=== PATIENT | male | born 1965 | race Caucasian/White ===

== ENCOUNTER 2018-03-18 04:10 | Emergency (ER) | payer MEDICAID, SELFPAY ==
[2018-03-18 04:12] VITALS: BP 257/106; PULSE 80; RESP 20; TEMP 35.8; O2SAT 95; BMI 55.0
--- NOTE | 2018-03-18 04:26 | ED.RN ---
NO OLD EKGS IN MUSE
[2018-03-18] MEDS: 0.9% Normal Saline 1,000 ML 150 ML IV (04:29)
[2018-03-18] MEDS: Aspirin 81 MG TAB.CHEW 324 MG PO (04:29)
[2018-03-18 04:30] VITALS: PULSE 79; RESP 20; O2SAT 95
[2018-03-18 04:31] LABS: Absolute Lymphocyte Count 2.26 X10^3/ul (0.83-4.51); Absolute Neutrophil Count 9.9 X10^3/uL (2.0-7.7); Basophil# 0.03 X10^3/uL; Basophil% 0.2 % (0-1); Eosinophil# 0.03 X10^3/uL; Eosinophils% 0.2 % (0-5); Hematocrit 42.6 % (40-54); Hemoglobin 14.4 g/dl (13.0-16.5); Lymphocyte # 2.26 X10^3/ul (4.0); Lymphocyte % 16.8 % (19-41); Mean Corp Hgb Conc 33.8 g/gl (32-36); Mean Corpuscular Hgb 31.4 pg (27.0-32.0); Mean Corpuscular Volume 92.8 fL (80-94); Mean Platelet Vol. 9.6 fl (6.2-12.0); Monocyte# 1.19 X10^3/uL; Monocyte% 8.8 % (0-10); Neutrophil # 9.92 X10^3/uL (2.7-7.7); Neutrophil % 73.7 % (47-70); Platelet Count 375 K/mm3 (150-450); RBC Distribution Width CV 12.5 % (11.6-14.6); RBC Distribution Width SD 42.3 fl (35.1-43.9); Red Blood Count 4.59 M/mm3 (4.6-6.2); White Blood Count 13.5 K/mm3 (4.4-11.0)
[2018-03-18 04:32] LABS: POSITIVE COUNT NO; POSITIVE DIFFERENTIAL NO; POSITIVE MORPHOLOGY NO
[2018-03-18 04:35] VITALS: BP 198/92; PULSE 76
[2018-03-18 04:41] VITALS: BP 181/89; PULSE 78
[2018-03-18 04:46] LABS: Anion Gap 10 (5-15); BUN 11 mg/dL (7-18); Calcium,Total 8.4 mg/dL (8.5-10.1); Chloride 109 mmol/L (98-107); Creatinine, Serum 0.85 mg/dL (0.70-1.30); EST Glomerular Filtration Rate 101 mL/min (>60); Est Glom Filt Rate - Afr Amer 122 mL/min (>60); Estimated Creatinine Clearance 92.78 ml/min; Glucose 111 mg/dL (74-106); Potassium 4.5 mmol/L (3.5-5.1); Sodium Level 142 mmol/L (136-145)
[2018-03-18 04:47] VITALS: BP 178/90; PULSE 75
--- NOTE | 2018-03-18 05:08 | ED.VISSUMM ---
- ER Visit Summary Date of Service: 03/18/18 Chief Complaint: [Dental pain] History of Present Illness: The patient is a 52 M [presents the emergency department with complaint of dental pain that started yesterday. Patient states that he cracked his right lower molar several months ago but really did not have any pain with it. Patient has been having severe pain that will not resolve with ibuprofen over the last 24 hours. Patient states the pain radiates into the right clavicle and neck area. Patient denies any chest pain or shortness of breath. Patient has not had any nausea or vomiting. He denies any exertional dyspnea. 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 Patient denies recent illness. Patient denies recent travel. Patient states that normally his blood pressures in the 150s over 80s. Patient is not a diabetic. Patient denies elevated cholesterol. Patient does not smoke.] Physical Examination: [HEENT-PERRLA, EOMI. Cranial nerves II through XII grossly intact. TMs clear. Mucous membranes moist. No adenopathy. Dentition-patient has a broken and carried right lower first molar that is tender to palpation. There is no gingival erythema or abscess formation noted. Palpating the right lower molar does mostly reproduce his pain. Cardiovascular-regular rate and rhythm without murmur or ectopy Lungs-clear to auscultation, chest wall stable without crepitus or subcu emphysema Abdomen-normoactive bowel sounds, soft, nontender, no rebound or rigidity, no peritoneal signs. Extremities-intact ?4, normal range of motion, normal pulses, atraumatic] Test Results: [EKG obtained on arrival showed a sinus rhythm with a ventricular rate of 74 bpm with no acute ST segment changes. CBC with differential showed a white blood cell count of 13.5, hemoglobin 14, hematocrit 43, platelets 375. Chemistries unremarkable. Troponin was less than 0.015. Chest x-ray showed nothing acute.] Emergency Department Course and Treatment: [On the emergency department patient did receive aspirin 324 mg p.o. Patient received 1 sublingual nitro every 5 minutes ?3 and had no real improvement in his pain. Patient's blood pressure did improve into the 150 systolic over 80s diastolic.] Treatment Plan: [I had a long discussion with the patient about my concern for his elevated blood pressure as well as this discomfort into the jaw and the neck and concern for cardiac disease. I recommended admission for further workup and evaluation including stress testing. Patient understands my concern but he does not feel his dental pain is cardiac equivalent. Patient is refusing admission and states that he would like to follow-up as an outpatient with his primary care physicians and a dentist. Patient advised to return if chest pain, shortness of breath, or condition should worsen in any way.] Patient advised to keep track of his blood pressures over the next week and follow-up with primary care physician to determine if he needs to be on blood pressure medication. Disposition: [Discharged home in stable condition.] Impression: [Dental pain Hypertension] This note was generated with [employer] dictation software. It may contain incorrect words, spelling, and punctuation that were not noted in review of the chart prior to signing ED Disposition - Plan for ED Patient: Chief Complaint: Dental Referrals: Sally James, [employer] [Primary Care Provider] -
--- NOTE | 2018-03-18 05:13 | ED.DEP ---
ED Disposition - Plan for ED Patient: Chief Complaint: Dental Instructions: ED Tooth Pain, ED Hypertension Poss Prescriptions: Hydrocodone/Acetaminophen [Abbot 5-325 Tablet] 1 - 2 ea PO 4X/DAY PRN PRN 3 Days #12 tab PRN Reason: Pain Clindamycin HCl [Cleocin] 300 mg PO Q6H #40 cap Referrals: Sally James, [employer] [Primary Care Provider] - 3-5 Days
[2018-03-18] MEDS: HYDROcodone Bitartrate/Apap 5/325 Tablet PO (05:23)
[2018-03-18] MEDS: Clindamycin HCl 150 MG Capsule 300 MG PO (05:23)
[2018-03-18 05:26] VITALS: BP 156/72; PULSE 71; RESP 18
== END 2018-03-18 05:26 | disposition home or self-care (01) ==
LOC: ED 04:43
PROVIDERS: Emergency Provider Emergency Medicine; Family Provider Nurse Practitioner Family; PCP Nurse Practitioner Family
DX: K08.89 Other specified disorders of teeth and supporting structures (principal); I10 Essential (primary) hypertension
CPT/HCPCS: 71045; 80048; 84484; 85025; 93005; 96360; 99285; J7030; A4216